=== PATIENT | female | born 1945 | race Caucasian/White ===

== ENCOUNTER 2018-02-21 10:53 | Emergency (ER) | payer MEDICARE ==
[2018-02-21] MEDS ORDERED: SODIUM CHLORIDE 0.9% 500 ML 500 ML IV STA (11:17)
--- NOTE | 2018-02-21 11:22 | ED ---
General Adult HPI <Niels Marcano - Last Filed: 02/21/18 14:01> - General Source: patient, RN notes reviewed, old records reviewed Mode of arrival: ambulatory Limitations: no limitations <Rhonda Sanchez - Last Filed: 02/21/18 14:18> - General Chief complaint: Arrhythmia/Palpitations Stated complaint: Shaky, not sleeping Time Seen by Provider: 02/21/18 11:08 - History of Present Illness Initial comments: Patient is a 73-year-old female presents emergency department today with her . Patient states she's been generally feeling unwell, shaky and feeling like she's having heart palpitations. Patient reports that she never goes to physicians. She states she has a severe fear for hospitals. Patient reports that she noticed approximately 11 years ago she had a small cyst within her left breast. Patient states it has increased in size over the past 11 years. Patient states that she has been doing her daily activities but seems to be more fatigued when doing them. She states that over the last few weeks she's noticed increasing skin changes over her left breast that the mass. Patient states that she has never had this biopsied or mentioned this to her family. She does relate that her daughter is a nurse who will be very upset when she finds out her symptoms. Patient states she has no significant pain at this time. (Rhonda Sanchez) - Related Data Home Medications Medication Instructions Recorded Confirmed Dm/Acetaminophen/Doxylamine [Vicks 1 dose PO DIRECTED PRN 02/21/18 02/21/18 Nyquil Cold-Flu Liquid] Rosalio's Wort 500 mg PO DAILY PRN 02/21/18 02/21/18 Previous Rx's Medication Instructions Recorded LORazepam [Ativan] 0.5 mg PO TID 3 Days #9 tab 02/21/18 Allergies Allergy/AdvReac Type Severity Reaction Status Date / Time No Known Allergies Allergy Verified 02/21/18 11:51 Review of Systems ROS Other: All systems not noted in ROS Statement are negative. <Niels Marcano - Last Filed: 02/21/18 14:01> ROS Other: All systems not noted in ROS Statement are negative. <Rhonda Sanchez - Last Filed: 02/21/18 14:18> ROS Statement: Those systems with pertinent positive or pertinent negative responses have been documented in the HPI. Past Medical History Past Medical History: No Reported History History of Any Multi-Drug Resistant Organisms: None Reported Past Surgical History: Section, Cholecystectomy Past Psychological History: No Psychological Hx Reported Smoking Status: Never smoker Past Alcohol Use History: None Reported Past Drug Use History: None Reported <Rhonda Sanchez - Last Filed: 02/21/18 14:18> General Exam <Niels Marcano - Last Filed: 02/21/18 14:01> Limitations: no limitations General appearance: alert, in no apparent distress Head exam: Present: atraumatic, normocephalic, normal inspection Eye exam: Present: normal appearance, PERRL, EOMI. Absent: scleral icterus, conjunctival injection, periorbital swelling ENT exam: Present: normal exam, mucous membranes moist Neck exam: Present: normal inspection. Absent: tenderness, meningismus, lymphadenopathy Respiratory exam: Present: normal lung sounds bilaterally, other (Patient has a 10 cm by 10cm firm mass over left breast, with crusting erythematous papular lesion in centre. ). Absent: respiratory distress, wheezes, rales, rhonchi, stridor Cardiovascular Exam: Present: regular rate, normal rhythm, normal heart sounds. Absent: systolic murmur, diastolic murmur, rubs, gallop, clicks GI/Abdominal exam: Present: soft, normal bowel sounds. Absent: distended, tenderness, guarding, rebound, rigid Extremities exam: Present: normal inspection, full ROM, normal capillary refill. Absent: tenderness, pedal edema, joint swelling, calf tenderness Back exam: Present: normal inspection Neurological exam: Present: alert, oriented X3, CN II-XII intact Psychiatric exam: Present: normal affect, normal mood Skin exam: Present: warm, dry, intact, normal color. Absent: rash <Rhonda Sanchez - Last Filed: 02/21/18 14:18> - General Exam Comments Initial Comments: 73-year-old female. Alert and oriented. Patient appears in no acute distress. (Rhonda Sanchez) Vital Signs 02/21/18 02/21/18 02/21/18 10:54 12:00 12:57 Temperature 97.9 F Pulse Rate 89 96 Respiratory 18 18 18 Rate Blood Pressure 198/114 194/89 189/87 O2 Sat by Pulse 96 97 Oximetry 02/21/18 02/21/18 13:00 14:00 Temperature 98.3 F Pulse Rate 90 89 Respiratory 16 16 Rate Blood Pressure 189/87 177/90 O2 Sat by Pulse 95 96 Oximetry - Reevaluation(s) Reevaluation #1: 02/21/18 14:02 DWIGHT supervision: I proceeded [id number] evaluation the patient did discuss Pfizer her and her . Patient does present with complaints of palpitations additionally she has a mass in her left breast she states started about 11 years ago she's never had it evaluated. I did examine it there is evidence of a fungating mass in the left upper outer quadrant of left breast. Nontender to palpation at this time no drainage seen at this time. The patient will be discharged to follow-up in the breast clinic this week. This will be for further evaluation and treatment. The patient and her are in agreement with this. (Niels Marcano) EKG Findings - EKG Comments: EKG Findings:: Patient EKG performed at 1134 shows sinus rhythm, anterior infarct age undetermined. ST-T wave normality considering lateral ischemia. Abnormal EKG. Ventricular rate of 94 bpm. 46 most seconds. Stressors and 70 formal seconds. QT QTc is 346/432 ms. <Rhonda Sanchez - Last Filed: 02/21/18 14:18> Medical Decision Making - Lab Data Result diagrams: 02/21/18 11:48 02/21/18 11:48 <Niels Marcano - Last Filed: 02/21/18 14:01> - Lab Data Result diagrams: 02/21/18 11:48 02/21/18 11:48 - Radiology Data Radiology results: report reviewed <Rhonda Sanchez - Last Filed: 02/21/18 14:18> - Medical Decision Making 73-year-old female. Anxious about coming to the emergency department today presents with complaints of palpitations been eating for the past few months, generally feeling unwell and more fatigued. She also complains of a large left breast masses been there for over 10 years. She has emergency department. She is somewhat hypertensive. She denies any specific chest pain or shortness of breath or abdominal pain. Patient has a large fungating breast mass. I discussed the case with Dr. Marcano. He discussed the case with on-call breast surgeon and Dr. Kian Marcano. Patient will have very close referral for them and they expect to have her call the office within the next 1-2 days. Her EKG, and troponin are negative. Chest x-ray was negative for any acute process. There is possibility of increased hilar density. At this time I'm very concerned the patient's breast mass is likely cancer. Patient was informed of this. Patient is quite anxious and given 1 dose of Ativan emergency department and we'll discharge the Patient a short course of Ativan to help her nerves and help her sleep. Discussed that she has to follow-up with her primary care provider in regards to episode of high blood pressure. She has no neurological deficits or any other complaints of chest pain or signs of end organ damage. Patient will be discharged at this time with close follow-up with breast surgeon and PCP. ( Rhonda Sanchez) - Lab Data Lab Results 02/21/18 02/21/18 02/21/18 Range/Units 11:48 11:48 11:48 WBC 8.4 (3.8-10.6) k/uL RBC 4.62 (3.80-5.40) m/uL Hgb 14.1 (11.4-16.0) gm/dL Hct 41.1 (34.0-46.0) % MCV 88.9 (80.0-100.0) fL MCH 30.5 (25.0-35.0) pg MCHC 34.3 (31.0-37.0) g/dL RDW 13.3 (11.5-15.5) % Plt Count 245 (150-450) k/uL Neutrophils % 68 % Lymphocytes % 25 % Monocytes % 5 % Eosinophils % 1 % Basophils % 0 % Neutrophils # 5.8 (1.3-7.7) k/uL Lymphocytes # 2.1 (1.0-4.8) k/uL Monocytes # 0.4 (0-1.0) k/uL Eosinophils # 0.1 (0-0.7) k/uL Basophils # 0.0 (0-0.2) k/uL PT (9.0-12.0) sec INR (<1.2) APTT (22.0-30.0) sec Sodium 142 (137-145) mmol/L Potassium 4.2 (3.5-5.1) mmol/L Chloride 106 (98-107) mmol/L Carbon Dioxide 24 (22-30) mmol/L Anion Gap 12 mmol/L BUN 14 (7-17) mg/dL Creatinine 0.64 (0.52-1.04) mg/dL Est GFR (CKD-EPI)AfAm >90 (>60 ml/min/1.73 sqM) Est GFR (CKD-EPI)NonAf >90 (>60 ml/min/1.73 sqM) Glucose 140 H (74-99) mg/dL Calcium 9.7 (8.4-10.2) mg/dL Magnesium 2.1 (1.6-2.3) mg/dL Total Bilirubin 0.8 (0.2-1.3) mg/dL AST 29 (14-36) U/L ALT 40 (9-52) U/L Alkaline Phosphatase 74 (38-126) U/L Total Creatine Kinase 58 (30-135) U/L CK-MB (CK-2) 0.6 (0.0-2.4) ng/mL CK-MB (CK-2) Rel Index 1.0 Troponin I <0.012 (0.000-0.034) ng/mL Total Protein 7.8 (6.3-8.2) g/dL Albumin 4.7 (3.5-5.0) g/dL TSH 2.010 (0.465-4.680) mIU/L 02/21/18 Range/Units 11:48 WBC (3.8-10.6) k/uL RBC (3.80-5.40) m/uL Hgb (11.4-16.0) gm/dL Hct (34.0-46.0) % MCV (80.0-100.0) fL MCH (25.0-35.0) pg MCHC (31.0-37.0) g/dL RDW (11.5-15.5) % Plt Count (150-450) k/uL Neutrophils % % Lymphocytes % % Monocytes % % Eosinophils % % Basophils % % Neutrophils # (1.3-7.7) k/uL Lymphocytes # (1.0-4.8) k/uL Monocytes # (0-1.0) k/uL Eosinophils # (0-0.7) k/uL Basophils # (0-0.2) k/uL PT 9.7 (9.0-12.0) sec INR 0.9 (<1.2) APTT 22.6 (22.0-30.0) sec Sodium (137-145) mmol/L Potassium (3.5-5.1) mmol/L Chloride (98-107) mmol/L Carbon Dioxide (22-30) mmol/L Anion Gap mmol/L BUN (7-17) mg/dL Creatinine (0.52-1.04) mg/dL Est GFR (CKD-EPI)AfAm (>60 ml/min/1.73 sqM) Est GFR (CKD-EPI)NonAf (>60 ml/min/1.73 sqM) Glucose (74-99) mg/dL Calcium (8.4-10.2) mg/dL Magnesium (1.6-2.3) mg/dL Total Bilirubin (0.2-1.3) mg/dL AST (14-36) U/L ALT (9-52) U/L Alkaline Phosphatase (38-126) U/L Total Creatine Kinase (30-135) U/L CK-MB (CK-2) (0.0-2.4) ng/mL CK-MB (CK-2) Rel Index Troponin I (0.000-0.034) ng/mL Total Protein (6.3-8.2) g/dL Albumin (3.5-5.0) g/dL TSH (0.465-4.680) mIU/L - Radiology Data No focal consolidations to suggest pneumonia. Hilar enlargement may represent underlying pulmonary to hypertension (Rhonda Sanchez) Disposition <Niels Marcano - Last Filed: 02/21/18 14:01> Is patient prescribed a controlled substance at d/c from ED?: Yes When asked, does pt state using other controlled substances?: No Time of Disposition: 14: <Rhonda Sanchez - Last Filed: 02/21/18 14:18> Clinical Impression: Breast mass, left, Episode of hypertension, Anxiety Disposition: HOME SELF-CARE Condition: Good Instructions: Breast Mass (ED) Additional Instructions: Patient is to have very close follow-up with primary care physician. Return to the emergency department if any alarming signs or symptoms occur. Patient should follow-up with Dr. Kina Marcano on . Prescriptions: LORazepam [Ativan] 0.5 mg PO TID 3 Days #9 tab Referrals: Ronnie Caballero MD [Primary Care Provider] - 1-2 days Mami Cha MD [STAFF PHYSICIAN] - 1-2 days
--- NOTE | 2018-02-21 12:04 | XR ---
EXAMINATION TYPE: XR chest 2V DATE OF EXAM: 02/21/2018 COMPARISON: NONE HISTORY: Dysrhythmia, hypertension, and weakness TECHNIQUE: Frontal and lateral views of the chest are obtained. FINDINGS: There is no focal air space opacity, pleural effusion, or pneumothorax seen. The cardiac silhouette size is within normal limits. There is hilar enlargement, right greater than left with asy mmetry secondary to accentuation by to patient rotation. The osseous structures are intact. IMPRESSION: 1. No focal consolidation to suggest pneumonia. 2. Hilar enlargement may represent underlying pulmonary arterial hypertension.
[2018-02-21 12:10] LABS: Basophils % (A) 0 %; Eosinophils # (A) 0.1 k/uL (0-0.7); Eosinophils % (A) 1 %; HCT 41.1 % (34.0-46.0); HGB 14.1 gm/dL (11.4-16.0); Lymphocytes # (A) 2.1 k/uL (1.0-4.8); Lymphocytes % (A) 25 %; MCH 30.5 pg (25.0-35.0); MCHC 34.3 g/dL (31.0-37.0); MCV 88.9 fL (80.0-100.0); Mean Platelet Volume 6.9; Monocytes # (A) 0.4 k/uL (0-1.0); Monocytes % (A) 5 %; Neutrophils # (A) 5.8 k/uL (1.3-7.7); Neutrophils % (A) 68 %; Platelet Count 245 k/uL (150-450); RBC 4.62 m/uL (3.80-5.40); RDW 13.3 % (11.5-15.5); WBC 8.4 k/uL (3.8-10.6)
[2018-02-21 12:18] LABS: ALT 40 U/L (9-52); AST 29 U/L (14-36); Albumin 4.7 g/dL (3.5-5.0); Alkaline Phosphatase 74 U/L (38-126); Anion Gap 12 mmol/L; Blood Urea Nitrogen 14 mg/dL (7-17); Calcium 9.7 mg/dL (8.4-10.2); Carbon Dioxide 24 mmol/L (22-30); Chloride 106 mmol/L (98-107); Glucose 140 mg/dL (74-99); Magnesium 2.1 mg/dL (1.6-2.3); Potassium 4.2 mmol/L (3.5-5.1); Sodium 142 mmol/L (137-145); Total Bilirubin 0.8 mg/dL (0.2-1.3); Total Protein 7.8 g/dL (6.3-8.2)
[2018-02-21 12:29] LABS: INR 0.9 (<1.2); Partial Thromboplastin Time 22.6 sec (22.0-30.0); Prothrombin Time 9.7 sec (9.0-12.0)
[2018-02-21 12:43] LABS: Creatine Kinase 58 U/L (30-135)
[2018-02-21 12:56] LABS: Creatine Kinase MB 0.6 ng/mL (0.0-2.4); Troponin I <0.012 ng/mL (0.000-0.034)
[2018-02-21] MEDS ORDERED: LORazepam 2 MG/ML INJ IV STA (13:58)
[2018-02-21 14:05] VITALS: BP 177/90; PULSE 89; RESP 16; TEMP 98.3
[2018-02-21] MEDS ORDERED: LORazepam 1 MG TAB PO STA (14:12)
== END 2018-02-21 14:20 | disposition home or self-care (01) ==
LOC: EC 10:53
DX: N63.20 Unspecified lump in the left breast, unspecified quadrant (principal); I10 Essential (primary) hypertension; F41.9 Anxiety disorder, unspecified; R00.2 Palpitations; R53.83 Other fatigue; Z53.8 Procedure and treatment not carried out for other reasons
CPT/HCPCS: 36415; 71046; 80053; 82550; 82553; 83735; 84443; 84484; 85025; 85610; 85730; 96360; 96361; 99285

== ENCOUNTER → 2018-02-24 | Outpatient (CLI) | payer MEDICARE ==
[2018-02-24 12:38] VITALS: BP 163/81; PULSE 78; RESP 18; TEMP 98; BMI 26.9
--- NOTE | 2018-02-24 13:49 | P.GSHP ---
History of Present Illness H&P Date: 02/24/18 Chief Complaint: Mass left breast Eulalia is a 73-year-old white female who approximately 11 years ago noted a mass starting in her left breast. She states until last summer it was smooth. She says she got hit in the area after a suite case fell and hit the area. She has a phobia to go to doctors and did not seek medical attention. The area has been oozing for about a month.She began having anxiety and palpatations and decided to go to the hospital. She was discharged and sent here. Family History: mother: lymphoma father: prostate Hormonal History: menarche: 12 : 8, 4 children, nursed 2 children, first born at 23 BPC: none hormones: none menopause: 49 Surgical history: 1. Cholecystectomy 2. Medical History: none Social History: smoke: none alcohol: occasional drugs: none - Constitutional Constitutional: Denies chills, Denies fever - EENT Comment: wear glasses Eyes: denies blurred vision, denies pain Ears: left: tinnitus, deny: decreased hearing Ears, nose, mouth and throat: Denies headache, Denies sore throat - Breasts Breasts: bilateral: as per HPI - Cardiovascular Cardiovascular: Denies chest pain, Denies shortness of breath - Respiratory Respiratory: Reports cough - Gastrointestinal Gastrointestinal: Denies abdominal pain, Denies diarrhea, Denies nausea, Denies vomiting - Genitourinary (Female) Genitourinary: Denies dysuria, Denies hematuria - Musculoskeletal Musculoskeletal: Denies myalgias - Integumentary Comment: left breast lesions Integumentary: Denies pruritus, Denies rash - Neurological Comment: shaky feeling at times Neurological: Denies numbness, Denies weakness - Psychiatric Psychiatric: Reports anxiety, Denies depression - Endocrine Comment: lost 10 pounds Endocrine: Reports weight change, Denies fatigue - Hematologic/Lymphatic Comment: none - Allergic/Immunologic Comment: none, questionable cat Past Medical History Past Medical History: No Reported History History of Any Multi-Drug Resistant Organisms: None Reported Past Surgical History: Section, Cholecystectomy Past Psychological History: Anxiety Smoking Status: Never smoker Past Alcohol Use History: None Reported Past Drug Use History: None Reported - Past Family History Father Family Medical History: Dementia, Hypertension Additional Family Medical History / Comment(s): pacemaker Mother Family Medical History: Cancer Additional Family Medical History / Comment(s): non hodkins lymphoma, bowel resection Medications and Allergies Home Medications Medication Instructions Recorded Confirmed Type Dm/Acetaminophen/Doxylamine [Vicks 1 dose PO DIRECTED PRN 02/21/18 02/24/18 History Nyquil Cold-Flu Liquid] LORazepam [Ativan] 0.5 mg PO TID 3 Days #9 tab 02/21/18 02/24/18 Rx Rosalio's Wort 500 mg PO DAILY PRN 02/21/18 02/24/18 History Allergies Allergy/AdvReac Type Severity Reaction Status Date / Time No Known Allergies Allergy Verified 02/24/18 12:38 Surgical - Exam Vital Signs Temp Pulse Resp BP Pulse Ox 98 F 78 18 163/81 99 02/24/18 12:26 02/24/18 12:26 02/24/18 12:26 02/24/18 12:26 02/24/18 12:26 BMI 26.9 - General well developed, moderate distress - Eyes normal ocular movement - ENT normal pinna, no hearing loss - Neck trachea midline - Respiratory normal expansion, normal respiratory effort, clear to auscultation - Cardiovascular Rhythm: regular Heart Sounds: normal: S1, S2 - Abdomen No guarding or rebound Abdomen: soft, non tender - Neurologic no disoriented, no combative - Musculoskeletal normal gait, normal posture - Psychiatric oriented to time, oriented to person, oriented to place, speech is normal, memory intact Breast examination: Right breast: Multi-positional exam no dominant masses or nodules of concern Right axilla: No adenopathy of concern Left breast: Large mass upper outer quadrant area approximately 7 cm x 7 cm, this areas fungating through the skin, this is not fixed to the chest wall Left axilla: Enlarged lymph node which is not fixed Results Mammogram report reviewed and ultrasound report reviewed highly suspicious lesion left breast upper outer quadrant area as well as suspicious lesion in the left axilla lesion of the left breast is approximately 5 cm on radiographic evaluation Assessment and Plan Assessment: Impression: 1. Highly suspicious lesion left breast and left axilla for cancer 2. Patient has not seen a physician until recently for many years 3. Possible history of myocardial infarction the remote past 4. Anxiety Plan: 1. Biopsy of breast and axillary lesion left side 2. Medical oncology consultation 3. We'll discuss the options with the patient including possible mastectomy versus chemo/hormonal therapy to attempt to shrink the tumor Cc: Dr. Caballero
== END ==
LOC: WWCWWP 09:50
PROVIDERS: ATTEND Surgery
DX: Z53.9 Procedure and treatment not carried out, unspecified reason (principal)

== ENCOUNTER → 2018-02-24 | Outpatient (CLI) | payer MEDICARE ==
--- NOTE | 2018-02-24 13:45 | MM ---
Reason for exam: clinical finding. History: Patient is postmenopausal. Indicated problem(s): lump or thickening in the left breast. Physical Findings: Nurse Summary: 8 x 9 cm fixed dominant mass left upper breast. The palpable has notable open areas of redness and scabbing. Pt has felt this for 11 years. There is skin dimpling on left breast at 9 o'clock, patient unsure of duration. MG 3D Diag Mammo W/Cad PRASANTH Bilateral CC and MLO view(s) were taken. The breast tissue is heterogeneously dense. This may lower the sensitivity of mammography. There is a 45 mm lobulated density in the left breast. There are benign-appearing vascular calcifications in the right upper posterior middle breast. ASSESSMENT: Highly suggestive of malignancy, BI-RAD 5 RECOMMENDATION: Ultrasound core biopsy of the left breast.
--- NOTE | 2018-02-24 14:05 | USB ---
Reason for exam: additional evaluation requested from prior study. History: Patient is postmenopausal. Indicated problem(s): palpable abnormality in the left breast. Physical Findings: Nurse Summary: palpable mass left breast. US Breast LT Left complete breast ultrasound includes all four quadrants, the retroareolar region and axilla. Finding demonstrates a 7.3 x 4.5 x 706 cm lobulated, irregular, hypoechoic, vascular, lesion at 11-2 o'clock, a 0.7 x 0.8 x 0.7 cm lobulated, hypoechoic, vascular, lesion at 3 o'clock, and a 2.5 x 2.3 x 3.4 cm oval well circumscribed node with loss of fatty hillum. Highly suggestive of malignancy with axillary involvement. ASSESSMENT: Highly suggestive of malignancy, BI-RAD 5 RECOMMENDATION: Ultrasound core biopsy of the left breast. Called Dr. Caballero with mammographic findings and has scheduled an appointment for the patient for 02/24/18 at 12:[address] Cha for consultation only. The left breast ultrasound core biopsy is scheduled for 02/25/18 at 11:30. PRELIMINARY REPORT CALLED AND FAXED TO DR. CHA ON 02/24/18
== END | disposition home or self-care (01) ==
LOC: RADMAMWWP 09:43
PROVIDERS: ATTEND Family Medicine
DX: N63.20 Unspecified lump in the left breast, unspecified quadrant (principal)
CPT/HCPCS: 77066; 76641; G0279; 77062

== ENCOUNTER → 2018-02-25 | Day surgery (SDC) | payer MEDICARE ==
[2018-02-25 10:59] VITALS: RESP 16; BMI 26.9
--- NOTE | 2018-02-25 13:48 | USB ---
EXAMINATION TYPE: US biopsy breast VAD LT, US breast needle core LT DATE OF EXAM: 02/25/2018 CLINICAL HISTORY: R92.8 ABN MAMMO,N63 BREAST LUMP. TECHNIQUE: Ultrasound guided core biopsy of left breast. COMPARISON: 02/24/2018 FINDINGS: The procedure of ultrasound guided core biopsy was explained to the patient. Benefits, alt ernatives, and risks were discussed. An informed consent was then obtained. Preprocedural timeout w as performed Site A: Left breast mass- The patient was placed in supine positioning for imaging and for the proce dure. The overlying skin was prepped and draped in usual sterile fashion. 10 cc of lidocaine buffered with bicarbonate was used as anesthetic into the skin and 7 cc of lidocaine with epinephrine subcuta neous tissue up to the 7.3 cm left breast mass, documented retroareolar with extent in the upper oute r quadrant. Under ultrasound guidance, a 12-gauge vacuum assisted biopsy gun device was used to obtain 5 core gayatri ples. No biopsy marker was left in a mass as the mass was clearly evident both sonographically and ma mmographically, and clinically. Site B: Suspicious left axillary lymph node- The patient was placed in supine positioning for imagin g and for the procedure. The overlying skin was prepped and draped in usual sterile fashion. 8 cc of lidocaine buffered with bicarbonate was used as anesthetic into the skin and 5 cc of lidocaine with e pinephrine subcutaneous tissue up to the suspicious left axillary lymph node. Under ultrasound guidance, a 18-gauge biopsy gun device was used to obtain 3 core samples. A Hydromar k biopsy marker was left within the lymph node documented sonographically. The patient tolerated the procedure well without any immediate complication. The patient was kept in the radiology department for short stay after the procedure and then discharged home in stable condi tion. IMPRESSION: Successful, uncomplicated ultrasound guided core biopsy of the 7.3 cm BI-RADS [address] mass and highly suspicious left axillary lymph node, full pathology results to follow.
[2018-02-25 14:38] VITALS: BP 168/83; PULSE 85; TEMP 97.8
== END ==
LOC: RADUSWWP 10:28
PROVIDERS: ATTEND Surgery
DX: C50.912 Malignant neoplasm of unspecified site of left female breast (principal); C96.9 Malignant neoplasm of lymphoid, hematopoietic and related tissue, unspecified
CPT/HCPCS: 38505; 10035; 88305; 88342; 19083; A4648; J2001

== ENCOUNTER → 2018-03-03 | Outpatient (CLI) | payer MEDICARE ==
[2018-03-03 09:49] VITALS: BP 173/79; PULSE 90; RESP 18; TEMP 96.7; BMI 26.6
--- NOTE | 2018-03-03 11:40 | P.PN ---
Subjective Progress Note Date: 03/03/18 Principal diagnosis: Left breast cancer Eulalia is a 73-year-old white female status post left breast ultrasound core biopsy and left axilla ultrasound core biopsy. Both biopsies were consistent with invasive ductal carcinoma. The patient has no complaints related to the biopsies. Objective - Vital Signs Vital signs: Vital Signs Temp 96.7 F L 03/03/18 09:41 Pulse 90 03/03/18 09:41 Resp 18 03/03/18 09:41 BP 173/79 03/03/18 09:41 Pulse Ox 98 03/03/18 09:41 Intake & Output 03/02/18 03/03/18 03/03/18 18:59 06:59 18:59 Weight 66.224 kg - Constitutional General appearance: Present: average body habitus - EENT Eyes: Present: EOMI ENT: Present: hearing grossly normal - Neck Neck: Present: normal ROM - Respiratory Respiratory: bilateral: CTA - Cardiovascular Rhythm: regular Heart sounds: normal: S1, S2 - Integumentary Integumentary Comment(s): Left breast: Large mass upper outer quadrant area with some skin involvement Core biopsy sites clean and dry no evidence of ecchymosis, hematoma, or infection - Psychiatric Psychiatric Comment(s): anxious Psychiatric: Present: A&O x's 3, appropriate affect, intact judgment & insight Assessment and Plan Assessment: Impression: 1. 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 PET scan 2. Point with medical oncology most likely neoadjuvant chemotherapy 3. Follow-up in 6 weeks' time Cc:
== END ==
LOC: WWCWWP 09:33
PROVIDERS: ATTEND Surgery
DX: Z53.9 Procedure and treatment not carried out, unspecified reason (principal)

== ENCOUNTER → 2018-03-05 | Outpatient (CLI) | payer MEDICARE ==
--- NOTE | 2018-03-07 06:26 | PE ---
EXAMINATION TYPE: PET CT fusion skull to thigh DATE OF EXAM: 03/05/2018 COMPARISON: Diagnostic Three-D mammogram February 24, 2018. HISTORY: Newly diagnosed left-sided breast cancer including axillary involvement February 25, 2018 TECHNIQUE: Following the intravenous administration of 12.29 mCi of F-18 FDG, whole body images are performed from the skull base to the midthigh. Images are reviewed on the computer in the coronal, a xial, and sagittal planes. Reconstructed rotating images are created on independent workstation and reviewed on the computer. A noncontrast CT is performed in conjunction with the PET scan. SCAN: Initial Scan FINDINGS: SKULL BASE AND NECK: Mild Symmetric uptake at level of vocal cords. There is suspicious slightly hypermetabolic enlarged left supraclavicular lymph node measuring 1.6 x 1.4 cm axial image 69, max SUV is 2.89. CHEST, MEDIASTINUM, AND HILAR REGION: Corresponding to mammogram there is large hypermetabolic left b reast mass measuring roughly 7.0 cm in length axial image 106 by roughly 7.0 cm craniocaudal dimensio n with max SUV of 8.91. There are some adjacent satellite hypermetabolic masses, for reference a late ral 1.5 cm mass axial image 98 has max SUV of 7.29. There is asymmetric mild to moderate left-sided s kin thickening. There is 2.4 x 2.3 cm hypermetabolic biopsy-proven left axillary metastatic adenopath y axial image 94, max SUV is 7.9. No suspicious right breast or axillary hypermetabolic masses or adenopathy are noted. There is however right midlung azygoesophageal hypermetabolic mass measuring 4.8 x 3.3 cm axial image 97, max SUV is 12.55. Superior and anterior to this there is right suprahilar hypermetabolic mass me asuring 2.8 x 2.3 cm on axial image 85, max SUV is 10.14. There are additional suspicious but scatter ed subcentimeter and 1 cm ametabolic nodules throughout the lower lungs best seen near diaphragm. There are calcified right hilar lymph nodes incidentally seen. There is calcified 8 mm right upper lo be nodule axial image 83. Few calcifications throughout the spleen are also seen. Findings consistent with product of old granulomatous disease. ABDOMEN AND PELVIS: No suspicious hypermetabolic uptake is present OSSEOUS STRUCTURES: No suspicious hypermetabolic uptake is seen. OTHER CT: Incidental 1.7 cm mucous retention cyst or polyp anterior-inferior left maxillary sinus. There is coronary artery calcification present which is noted marker for coronary artery disease. Cholecystectomy clips are present. Diverticula are identified most prominent in the sigmoid colon. Fe w scattered pelvic phleboliths are seen. Exaggerated thoracic kyphosis. There is facet arthropathy lower lumbar spine. IMPRESSION: Uptake in large left breast mass and known left axillary adenopathy. Satellite nodules le ft breast are noted. There is suspected hematogenous metastatic disease to the lower lungs with large st hypermetabolic masses or neoplasm centrally in the right mid lung. There is left-sided supraclavic ular metastatic adenopathy. No osseous or abdominal involvement.
== END | disposition home or self-care (01) ==
LOC: RADPETMAIN 13:21
PROVIDERS: ATTEND Surgery
DX: C77.0 Secondary and unspecified malignant neoplasm of lymph nodes of head, face and neck (principal); C50.912 Malignant neoplasm of unspecified site of left female breast; R59.0 Localized enlarged lymph nodes; N63.20 Unspecified lump in the left breast, unspecified quadrant
CPT/HCPCS: 78815; A9552

== ENCOUNTER → 2018-09-12 | Outpatient (CLI) | payer MEDICARE ==
--- NOTE | 2018-09-12 16:16 | CT ---
EXAMINATION TYPE: CT ChestAbdPelvis w con DATE OF EXAM: 09/12/2018 COMPARISON: 03/05/2018 HISTORY: 73-year-old female follow-up Breast cancer. TECHNIQUE: Contiguous axial scanning of the chest, abdomen, and pelvis performed with IV Contrast, pa tient injected with 100 mL of Isovue M300. Delayed images through the kidneys were obtained. Coronal/ sagittal reconstructions performed. CT DLP: 882.6 mGycm Automated exposure control for dose reduction was used. FINDINGS: Chest: Heart upper limits of normal in size without pericardial effusion. Aorta normal caliber with conventional branching anatomy. Minimal residual right suprahilar soft tissue density, axial image 24. Right-sided subcarinal lymphad enopathy decreased now measuring 2.8 x 2.0 cm versus 4.8 x 3.3 cm, previously. Left supraclavicular lymph node decreased in size at 9 mm versus 1.4 cm, previously. Large left breast mass decreased in size estimated at 4.4 cm versus 7.9 cm, previously. A lateral sat ellite nodule measures 9 mm versus 1.5 cm, previously. Left axillary lymph node measures 2.0 cm versus 3.0 cm, previously. Mild centrilobular emphysema. Calcified granuloma right upper lobe. Large calcified right hilar lymph nodes. A few bibasilar pulmonary nodules are redemonstrated but have decreased in size now measuring up to 6 mm versus 1.1 cm, previously. ABDOMEN: Small hiatal hernia. Stable cyst measuring 1.5 cm in segment 4 left liver lobe. Cholecystectomy clips. Portal venous syste m is patent. No biliary ductal dilatation. Adrenal glands, kidneys, and pancreas appear within normal limits. A few calcified granulomas in the spleen. No dilated small bowel, free fluid, or free air. A few scattered prominent but nonenlarged mesenteric lymph nodes measure up to 6 mm. Probably reactiv e/post inflammatory. Oral contrast progressed to the proximal sigmoid. Left-sided colonic diverticulosis, greatest in the sigmoid colon. No pericolonic inflammatory change. Pelvis: Bladder is urine distended. Uterus anteverted. Both ovaries are visualized. Pelvic phlebolith. No abn ormal fluid collection in the pelvis or pelvic lymphadenopathy. Bones: Facet arthropathy lower lumbar spine. Sclerotic focus anterior T3 vertebral body appears new/larger. Some bridging changes of dish in the mid thoracic spine with accentuated thoracic kyphosis. IMPRESSION: 1. LARGE LEFT BREAST MASS SHOWS DECREASE IN SIZE (4.4 CM VERSUS 7.9 CM, PREVIOUSLY). LATERAL SATELLIT E NODULE ALSO DECREASED MEASURING 9 MM VERSUS 1.4 CM, PREVIOUSLY. 2. LEFT AXILLARY LYMPH NODE, LEFT SUPRACLAVICULAR LYMPH NODE, BIBASILAR PULMONARY NODULES, RIGHT SUPR AHILAR SOFT TISSUE, AND SUBCARINAL SOFT TISSUE ALL SHOW INTERVAL DECREASE IN SIZE. FINDINGS COMPATIBL E WITH PARTIAL TREATMENT RESPONSE. 3. SCLEROTIC FOCUS ANTERIOR T3 VERTEBRAL BODY IS LARGER/NEW. GIVEN OVERALL POSITIVE TREATMENT RESPONS E, THIS COULD REPRESENT HEALING SCLEROSIS OF PREVIOUSLY OCCULT OSSEOUS METASTATIC LESION. 4. LEFT-SIDED COLONIC DIVERTICULOSIS, GREATEST IN THE SIGMOID COLON.
== END | disposition home or self-care (01) ==
LOC: RADCTMAIN 12:50
PROVIDERS: ATTEND Internal Medicine Hematology & Oncology
DX: K57.30 Diverticulosis of large intestine without perforation or abscess without bleeding (principal); R91.8 Other nonspecific abnormal finding of lung field; C50.812 Malignant neoplasm of overlapping sites of left female breast
CPT/HCPCS: 82565; 84520; 71260; 74177; 36415; Q9967

== ENCOUNTER → 2019-01-24 | Outpatient (CLI) | payer MEDICARE ==
--- NOTE | 2019-01-24 13:34 | BD ---
EXAMINATION TYPE: Axial Bone Density DATE OF EXAM: 01/24/2019 COMPARISON: none CLINICAL HISTORY: Postmenopausal female Height: 62 inches Weight: 164 FRAX RISK QUESTIONS: Alcohol (3 or more units per day): no Family History (Parent hip fracture): no Glucocorticoids (More than 3mos): no (Ex: prednisone, prednisolone, methylprednisolone, dexamethasone, and hydrocortisone). History of Fracture in Adulthood: yes Secondary Osteoporosis: 1. Type 1 Diabetes: no 2. Hyperthyroidism: no 3. Menopause before 45: no 4. Malnutrition: no 5. Chronic liver disease: no Rheumatoid Arthritis: no Current Tobacco Use: no RISK FACTORS HISTORY OF: Family History of Osteoporosis: not to knowledge of patient Active: yes Diet low in dairy products/other sources of calcium: no Postmenopausal woman: yes Take estrogen and/or progesterone medications: no Lost more than 2 inches in height since high school: no Frequent falls: no Poor Health: breast ca, otherwise not in poor health Hyperparathyroidism: no Adrenal Insufficiency: no MEDICATIONS: Prednisone or other steroids: no Thyroid Medications: no Osteoporosis Medications: no Additional Medications: Letrozole, ibrance, Vitamin D & Calcium Additional History: Breast CA, hx fx elbow EXAM MEASUREMENTS: Bone mineral densitometry was performed using the [employer] [facility]. Bone mineral density as measured about the Lumbar spine is: ----- L1-L4(G/cm2): 0.969 T Score Values are as follows: ----- L2: -2.3 ----- L3: -1.8 ----- L4: -1.3 ----- L1-L4: -1.8 Bone mineral density BASELINE Bone mineral density about the R hip (g/cm2): 0.723 Bone mineral density about the L hip (g/cm2): 0.712 T Score values are as follows: -----R Neck: -2.3 -----L Neck: -2.3 -----R Total: -2.3 -----L Total: -1.9 Bone mineral density BASELINE IMPRESSION: Osteopenia (T Score between -2.5 and -1). There is slightly increased risk of fracture and the patient may be considered for treatment. Re-Screen 2-5 years. NOTE: T-SCORE=SD OF THE YOUNG ADULT MEAN.
== END ==
LOC: RADBDWWP 09:36
PROVIDERS: ATTEND Internal Medicine Hematology & Oncology
DX: M85.80 Other specified disorders of bone density and structure, unspecified site (principal); N95.1 Menopausal and female climacteric states; C50.812 Malignant neoplasm of overlapping sites of left female breast; Z79.890 Hormone replacement therapy
CPT/HCPCS: 77080

== ENCOUNTER → 2019-05-03 | Outpatient (CLI) | payer MEDICARE ==
--- NOTE | 2019-05-03 11:46 | CT ---
EXAMINATION TYPE: CT ChestAbdPelvis w con DATE OF EXAM: 05/03/2019 COMPARISON: Prior CT September 12, 2018 and PET/CT March 05, 2018 HISTORY: Malignant neoplasm of overlapping sites. Breast and lung involvement. CT DLP: 931.6 mGycm. Automated Exposure Control for Dose Reduction was Utilized. CONTRAST: CT scan of the thorax, abdomen and pelvis is performed with IV Contrast, patient injected with 100 mL of Isovue 300. FINDINGS: LUNGS: There is redemonstration of scattered smaller nodules in the lower lungs improved from PET/CT. Visualized nodules are stable or smaller in size from most recent CT. All are currently subcentimete r. For reference two nodules right lung base anteriorly axial image 41 are less prominent versus prio r CT axial image 45. For reference lingular nodule axial image 40 measures 5 x 4 mm current study paul jose 9 x 4 mm prior study image 40. Persistent mild bibasilar linear scarring and/or atelectasis along with mild biapical linear scarring. Persistent calcified 1 cm nodule or granuloma anterior right upp er lung and more prominent adjacent interstitial edema or fibrosis. MEDIASTINUM: There are no new greater than 1 cm noncalcified hilar or mediastinal lymph nodes. Contin ued improving right hilar/infrahilar adenopathy measuring 2.0 x 1.3 cm axial image 30 versus 3.0 x 1. 9 cm axial image 32. Stable prominent calcified right hilar lymph node axial image 26. No cardiomega ly or pericardial effusion is seen. OTHER: Continued improving left breast mass or neoplasm now measuring 2.8 x 2.7 x 3.1 cm axial image 16 and coronal image 22 versus 4.3 x 3.5 x 4.8 cm prior study axial image 21 and coronal image 13. Th e adjacent left subcentimeter satellite nodule image 14 diminished in size to roughly 4 mm versus 9 m m on prior. Left axillary lymph node measures 1.5 x 1.2 cm current study axial image 13 versus 2.0 x 1.5 cm on prior, central clip remains present. Persistent slight asymmetric left-sided breast skin th ickening shows improvement. The left supraclavicular lymph node axial image 7 measures 1.2 x 1.0 cm not significantly changed fro m most recent CT. Improved from PET/CT. LIVER/GB: Hypodense liver consistent with diffuse fatty infiltration. Stable nonspecific 1.7 cm hypod ense lesion image 55 favoring simple thin-walled cyst.. PANCREAS: No significant abnormality is seen. SPLEEN: No significant abnormality is seen. ADRENALS: No significant abnormality is seen. KIDNEYS: No significant abnormality is seen. BOWEL: Oral contrast reaches rectum. No suspicious small or large bowel dilatation. Some diverticula scattered throughout the colon. GENITAL ORGANS: Anteverted uterus. Scattered pelvic phleboliths. LYMPH NODES: No greater than 1cm abdominal or pelvic lymph nodes are appreciated. OSSEOUS STRUCTURES: Moderate disc space narrowing with vacuum disc phenomenon L4-L5 level.. OTHER: No significant additional abnormality is seen. IMPRESSION: Continued partial positive treatment response with improving left breast mass and adjacen t satellite nodule along with axillary adenopathy along with pulmonary basilar nodules suspected zak togenous metastatic disease. Improving thoracic adenopathy. Stable left supraclavicular adenopathy. No new suspicious masses.
== END | disposition home or self-care (01) ==
LOC: RADCTMAIN 08:53
PROVIDERS: ATTEND Internal Medicine Hematology & Oncology
DX: Z03.89 Encounter for observation for other suspected diseases and conditions ruled out (principal); C50.812 Malignant neoplasm of overlapping sites of left female breast
CPT/HCPCS: 82565; 84520; 71260; 74177; 36415; Q9967 ×2

== ENCOUNTER → 2019-10-30 | Outpatient (CLI) | payer MEDICARE ==
--- NOTE | 2019-10-30 14:18 | CT ---
EXAMINATION TYPE: CT ChestAbdPelvis w con DATE OF EXAM: 10/30/2019 COMPARISON: 05/03/2019 HISTORY: Follow up breast cancer CT DLP: 944.6 mGycm CONTRAST: CT scan of the chest, abdomen and pelvis is performed with Oral Contrast and with IV Contrast, patien t injected with 100 mL of Isovue 300. CT Chest: LUNGS: The lungs are hyperinflated compatible with COPD. Scattered subpleural fibrosis redemonstrated . Right upper lobe pulmonary nodule measures 6 mm versus 6 mm previously. Right middle lobe pulmonary nodules are redemonstrated all smaller in size and currently measure up to 5.3 mm versus 6 mm previo usly. Nodularity persists in the region of the lingula measuring 5 mm versus 5 mm. Pleural-based nodu le right lower lobe posterior sulcus measures 6.3 mm and is also unchanged. Parenchymal scarring left lower lobe. MEDIASTINUM: Thoracic aorta is of normal caliber. The heart is not enlarged. No evidence for media stinal mass or adenopathy. HILAR STRUCTURES: No evidence for mass. No hilar adenopathy is appreciated. OTHER: Left breast mass is redemonstrated and currently measures 2.1 x 2.1 cm versus 2.8 x 2.7 cm. Ad ditional satellite nodularity also diminished in size. Left axillary lymph node persists although is smaller in size and measures 8.3 mm versus 1.2 cm in axis. CONTRAST CT ABDOMEN AND PELVIS FINDINGS: LIVER/GB: There is hepatic steatosis noted. Lesion adjacent to the falciform ligament is unchanged and measures 1.6 cm versus 1.7 cm previously. The gallbladder is surgically absent. No space occupyi ng hepatic lesion. Biliary tree is of normal caliber. PANCREAS: No inflammation. No distinct mass. SPLEEN: No splenic enlargement. No lesion seen. ADRENALS: No nodule. No thickening. KIDNEYS/BLADDER: No hydronephrosis. No nephrolithiasis. No disctinct renal mass. BOWEL: Normal appendix. Normal bowel caliber. No inflammation. GENITAL ORGANS: No gross abnormality. LYMPH NODES: No greater than 1cm abdominal or pelvic lymph nodes are appreciated. AORTA: No significant abnormality. OSSEOUS STRUCTURES: No significant abnormality is seen. OTHER: No significant additional abnormality is seen. IMPRESSION: 1. Persistent but diminishing size left breast mass and left axillary adenopathy. 2. Stable hepatic lesion noted. 3. Pulmonary nodules as discussed above.
== END | disposition home or self-care (01) ==
LOC: RADCTMAIN 11:41
PROVIDERS: ATTEND Internal Medicine Hematology & Oncology
DX: N63.20 Unspecified lump in the left breast, unspecified quadrant (principal); R91.8 Other nonspecific abnormal finding of lung field; K76.89 Other specified diseases of liver; R59.9 Enlarged lymph nodes, unspecified; C50.812 Malignant neoplasm of overlapping sites of left female breast
CPT/HCPCS: 82565; 84520; 71260; 74177; 36415; Q9967

== ENCOUNTER → 2020-08-20 | Outpatient (CLI) | payer MEDICARE ==
--- NOTE | 2020-08-21 07:41 | CT ---
EXAMINATION TYPE: CT ChestAbdPelvis w con DATE OF EXAM: 08/20/2020 COMPARISON: Most recent CT October 30, 2019 and older CTs HISTORY: Follow up for breast cancer, observe for mets. CT DLP: 964.2 mGycm. Automated Exposure Control for Dose Reduction was Utilized. CONTRAST: CT scan of the thorax, abdomen and pelvis is performed with oral and with IV Contrast, patient inject ed with 80ml mL of Isovue 300. FINDINGS: LUNGS: There is continued improvement of scattered smaller nodules in the lower lungs improved from o lder study. No measurable nodules on current CT over 4 mm. [id number] basilar reticulation and linear atelectatic and/or fibrotic change shows slight interval progression from older studies. Persi stent calcified 1 cm nodule or granuloma anterior right upper lung and stable adjacent interstitial f ibrosis. MEDIASTINUM: There are no new greater than 1 cm noncalcified hilar or mediastinal lymph nodes. Fairly stable right hilar/infrahilar prominent lymph node measuring 1.7 x 1.0 cm axial image 26 versus mos t recent prior study axial image 26. Stable enlarged calcified right hilar lymph node axial image 26. No enlarging greater than 1 cm lymph nodes. No cardiomegaly or pericardial effusion is seen. OTHER: Continued improving left breast mass or neoplasm now measuring 1.9 x 1.8 x 2.5 cm axial image 20 and coronal image 13 versus 2.2 x 2.1 x 2.7 cm prior study axial image 18 and coronal image 14. Th e adjacent left subcentimeter satellite nodule image 14 diminished in size to roughly 2-3 mm axial im age 21 from older studies. Left axillary lymph node measures 1.0 x 0.9 cm current study axial image 16 decreased in size from prior studies, central clip remains present. Persistent slight asymmetric l eft-sided breast skin thickening remains present. Nipple retraction again seen. The prior hypermetabolic left supraclavicular lymph node is not identified on current study. LIVER/GB: Hypodense liver consistent with diffuse fatty infiltration. Stable nonspecific 1.6 cm hypod ense lesion image 56 favoring simple thin-walled cyst is redemonstrated. Gallbladder surgically absen t. PANCREAS: No significant abnormality is seen. SPLEEN: No significant abnormality is seen. ADRENALS: Stable slight thickening to left adrenal gland. KIDNEYS: No significant abnormality is seen. BOWEL: Oral contrast reaches level of distal transverse colon. No suspicious small or large bowel dil atation. Some diverticula scattered throughout the colon. GENITAL ORGANS: Anteverted uterus. Scattered pelvic phleboliths. LYMPH NODES: No new greater than 1cm abdominal or pelvic lymph nodes are appreciated. OSSEOUS STRUCTURES: Mild to moderate disc space narrowing with vacuum disc phenomenon L4-L5 level. OTHER: No significant additional abnormality is seen. IMPRESSION: Continued partial positive treatment response with improving left breast mass and adjacen t satellite nodule along with axillary adenopathy. Continued improvement in basilar pulmonary nodules . No measurable nodules currently. No new or enlarging suspicious masses or adenopathy noted.
== END | disposition home or self-care (01) ==
LOC: RADCTMAIN 10:52
PROVIDERS: ATTEND Internal Medicine Hematology & Oncology
DX: Z03.89 Encounter for observation for other suspected diseases and conditions ruled out (principal); C50.812 Malignant neoplasm of overlapping sites of left female breast
CPT/HCPCS: 82565; 84520; 71260; 74177; 36415; Q9967

== ENCOUNTER → 2021-02-10 | Outpatient (CLI) | payer MEDICARE ==
--- NOTE | 2021-02-10 13:12 | CT ---
EXAMINATION TYPE: CT ChestAbdPelvis w con DATE OF EXAM: 02/10/2021 COMPARISON: 08/20/2020 HISTORY: follow up breast cancer CT DLP: 1440 mGycm CONTRAST: CT scan of the chest, abdomen and pelvis is performed with Oral Contrast and with IV Contrast, patien t injected with 80 mL of Isovue 300. CT Chest: LUNGS: The lungs are clear and free of infiltrate or atelectasis. No pulmonary nodule or mass is det ected. Scattered subpleural fibrosis identified. MEDIASTINUM: Thoracic aorta is of normal caliber. The heart is not enlarged. No evidence for media stinal mass or adenopathy. HILAR STRUCTURES: No evidence for mass. No hilar adenopathy is appreciated. Large calcified leiomyom a right hilum. OTHER: Lumpectomy changes left breast. CONTRAST CT ABDOMEN AND PELVIS FINDINGS: LIVER/GB: Hepatic steatosis. Simple cyst adjacent to the falciform ligament measures 1.3 cm. The gall bladder is surgically absent. No space occupying hepatic lesion. Biliary tree is of normal caliber. PANCREAS: No inflammation. No distinct mass. SPLEEN: No splenic enlargement. No lesion seen. ADRENALS: No nodule. No thickening. KIDNEYS/BLADDER: No hydronephrosis. No nephrolithiasis. No disctinct renal mass. BOWEL: Normal appendix. Normal bowel caliber. No inflammation. GENITAL ORGANS: No gross abnormality. LYMPH NODES: No greater than 1cm abdominal or pelvic lymph nodes are appreciated. AORTA: No significant abnormality. OSSEOUS STRUCTURES: No significant abnormality is seen. OTHER: No significant additional abnormality is seen. IMPRESSION: 1. No CT evidence to suggest metastatic disease at this time.
== END | disposition home or self-care (01) ==
LOC: RADCTMAIN 11:02
PROVIDERS: ATTEND Internal Medicine Hematology & Oncology
DX: Z03.89 Encounter for observation for other suspected diseases and conditions ruled out (principal); C50.812 Malignant neoplasm of overlapping sites of left female breast
CPT/HCPCS: 82565; 84520; 71260; 74177; 36415; Q9967

== ENCOUNTER → 2021-03-05 | Outpatient (CLI) | payer MEDICARE ==
--- NOTE | 2021-03-05 12:31 | BD ---
EXAMINATION TYPE: Axial Bone Density DATE OF EXAM: 03/05/2021 COMPARISON: 01.24.2019 CLINICAL HISTORY: 76 YR OLD FEMALE....ICD-10 CODE: Z79.890 MENOPAUSAL Height: 61.6 Weight: 166 FRAX RISK QUESTIONS: History of Fracture in Adulthood: YES RISK FACTORS HISTORY OF: LT ELBOW FX AT AGE 66 YRS OLD Diet low in dairy products/other sources of calcium: YES Postmenopausal woman: YES, AT AGE 49 YRS OLD Hyperparathyroidism: NO Adrenal Insufficiency: NO MEDICATIONS: Osteoporosis Medications: FOSAMAX, TRIED FOR 3 MOS, COULD NOT TOLERATE Additional Medications: VIACTIVE, CALTRATE, I-BRANS CHEMO FOR LT BR CA, ZOLOFT, XANAX, REFLUX MEDS, V IT D, BIOTIN Additional History: LT BR CANCER, ANXIETY, REFLUX, EXAM MEASUREMENTS: Bone mineral densitometry was performed using the [employer] System. Bone mineral density as measured about the Lumbar spine is: ----- L1-L4(G/cm2): 0.979 T Score Values are as follows: ----- L1: -2.0 ----- L2: -2.1 ----- L3: -1.5 ----- L4: -1.3 ----- L1-L4: -1.7 Bone mineral density has: Increased 2.0% since study of: 01.24.2019 Bone mineral density about the R hip (g/cm2): 0.715 Bone mineral density about the L hip (g/cm2): 0.770 T Score values are as follows: -----R Neck: -2.3 -----L Neck: -2.2 -----R Total: -2.3 -----L Total: -1.9 Bone mineral density has: Increased 0.4% since study of: 01.24.2019 FRAX%s: THERE IS A 22.0% CHANCE FOR A MAJOR OSTEOPOROTIC FX AND A 5.8% FOR HIPS.......PROBABILITY FOR FX IN 10 YRS TIME IMPRESSION: Osteopenia (T Score between -2.5 and -1). There is slightly increased risk of fracture and the patient may be considered for treatment. Re-Screen 2-5 years. NOTE: T-SCORE=SD OF THE YOUNG ADULT MEAN.
== END | disposition home or self-care (01) ==
LOC: RADBDWWP 07:49
PROVIDERS: ATTEND Internal Medicine Hematology & Oncology
DX: M85.80 Other specified disorders of bone density and structure, unspecified site (principal)
CPT/HCPCS: 77080

== ENCOUNTER → 2022-01-20 | Outpatient (CLI) | payer MEDICARE ==
--- NOTE | 2022-01-20 12:40 | CT ---
EXAMINATION TYPE: CT ChestAbdPelvis w con DATE OF EXAM: 01/20/2022 COMPARISON: 02/10/2021 HISTORY: follow up for breast ca CT DLP: 986.3 mGycm Automated exposure control for dose reduction was used. CONTRAST: CT scan of the chest, abdomen and pelvis is performed with Oral Contrast and with IV Contrast, patien t injected with 70 mL of Isovue 300. FINDINGS: LUNGS: The lungs are grossly clear, there is no concerning parenchymal mass or nodule identified. T here is no pleural effusion or pneumothorax seen. The tracheobronchial tree is patent. Thickening of the major fissure. There is mild changes of COPD with interlobular septal thinning most typical of c hronic interstitial lung disease. Calcified granuloma right upper lobe. Mild basilar bronchiectasis. MEDIASTINUM: There are no greater than 1 cm hilar or mediastinal lymph nodes. No pericardial effusi on is seen. Large calcified right hilar lymph nodes stable. Mild coronary artery calcification. Hear t size at the upper limits of normal. Aorta normal caliber with mild atherosclerotic changes. OTHER: Previous breast surgery changes on the left suspect is stable from prior exam. LIVER/GB: Findings compatible with hepatic steatosis. There is a persistent hypodense lesion adjacent to the falciform ligament measuring 11 Hounsfield units compatible with simple cysts stable from park or exam. Measuring approximately 1.4 cm. Postcholecystectomy changes noted. PANCREAS: No significant abnormality is seen. SPLEEN: Benign granuloma within the spleen. ADRENALS: No significant abnormality is seen. KIDNEYS: No significant abnormality is seen. BOWEL: Bowel gas pattern is nonspecific with changes of diverticulosis. Bladder distends normally. LYMPH NODES: No greater than 1 cm abdominal or pelvic lymph nodes are appreciated. OSSEOUS STRUCTURES: Hypertrophic degenerative change of the spine. Arthropathy of the hips. OTHER: Aorta is normal caliber with atherosclerotic changes. Small fat-containing periumbilical herni a. IMPRESSION: 1. No CT evidence of metastases 2. COPD and findings suggestive of pulmonary fibrosis. 3. Correlate for previous granulomatous disease. 4. Mild coronary artery calcification. 5 postsurgical changes left breast #6 simple appearing hepatic cyst. Stable.
== END | disposition home or self-care (01) ==
LOC: RADCTMAIN 09:23
PROVIDERS: ATTEND Internal Medicine Hematology & Oncology
DX: C50.812 Malignant neoplasm of overlapping sites of left female breast (principal); J44.9 Chronic obstructive pulmonary disease, unspecified; I25.10 Atherosclerotic heart disease of native coronary artery without angina pectoris; K76.89 Other specified diseases of liver
CPT/HCPCS: 82565; 84520; 71260; 74177; 36415; Q9967

== ENCOUNTER → 2023-02-24 | Outpatient (CLI) | payer MEDICARE ==
[2023-02-24 13:16] LABS: African American GFR (CKD) 61 (>60 ml/min/1.73 sqM); Blood Urea Nitrogen 23 mg/dL (7-17); Non-African American GFR(CKD) 53 (>60 ml/min/1.73 sqM)
--- NOTE | 2023-03-04 05:59 | CT ---
EXAMINATION TYPE: CT ChestAbdPelvis w con CT DLP: 926.1 mGycm, Automated exposure control for dose reduction was used. DATE OF EXAM: 02/24/2023 2:18 PM COMPARISON: CT chest abdomen pelvis 01/20/2022 and before CLINICAL INDICATION:Female, 78 years old with history of C50.812 BREAST CANCER; [facility], h/o breast ca, f /u TECHNIQUE: Multiple axial images of the chest, abdomen, and pelvis were obtained. Two-dimensional cor onal and sagittal reconstructions were obtained. Contrast used:80 mL of Isovue 300 with IV Contrast, Oral contrast used: with Oral Contrast FINDINGS: CHEST: LUNGS/ PLEURA: Mild to moderate peripheral reticulation suggesting scarring/fibrosis. No evidence for honeycombing. Mild subsegmental changes in the lung bases likely atelectasis and/or scarring. No acu te infiltrate, pleural effusion, or pneumothorax. No sizable pulmonary nodule or mass. Calcified nodu larity up to 1 cm in the right upper lobe with adjacent scarring, and a 2.6 cm calcified right suprah ilar node, consistent with prior granulomatous disease. AIRWAY: Central airways are patent. LOWER NECK: No significant findings. MEDIASTINUM: No gross evidence of mediastinal or hilar adenopathy. Nonenlarged mediastinal nodes rem ain stable. HEART: Heart size upper normal. Moderate coronary artery calcification and/or stents. Trace pericardi al fluid. Mildly prominent pericardial fat. VASCULATURE: Moderate mixed atherosclerotic disease of the aorta and major branches.. Ascending aort a is 2.7 CM, descending is 2.1 CM. Aorta is considered within normal limits for size. Pulmonary trun k measures 2.8 CM. Pulmonary trunk is within normal in size. Grossly preserved enhancement of the pul monary arteries, in the limits of non-CTA exam. SOFT TISSUES/LYMPH NODES: Stable appearance of presumed scarring/post treatment changes in the left b reast. No axillary or subclavian chain adenopathy. MUSCULOSKELETAL: No acute osseous abnormalities. Moderate disc degeneration changes are present throu ghout the thoracolumbar spine with exaggerated thoracic kyphosis. Continued stable focus of sclerosis in the anterior T3 vertebral body, could be site of treated metastatic disease. There is no destruct vinh bony lesion seen. OTHER: No other significant finding. ABDOMEN PELVIS: ABDOMEN LIVER: Hypoattenuating parenchyma suggestive of moderate steatosis. Hypoattenuating lesion in the ant erior liver near the fissure for the ligamentum teres is difficult to measure precisely but is about 2 x 1.6 cm, by my measurements unchanged from priors; notably this had not been hot on previous PET a nd is consistent with a benign lesion such as hemangioma or cyst. No new or enlarging liver lesions. Portal veins are enhancing. GALLBLADDER AND BILE DUCTS: The gallbladder is surgically absent. No pathologic biliary dilatation se en. PANCREAS: Fatty infiltrated without acute finding. SPLEEN: Few calcified granulomas, otherwise unremarkable. ADRENAL GLANDS: Stable, slightly thickened without evidence of mass.. KIDNEYS AND URETERS: Kidneys enhance symmetrically. No evidence of mass or hydronephrosis. PELVIS BLADDER: Bladder incompletely distended but appears grossly unremarkable. REPRODUCTIVE: Uterus appears present and grossly unremarkable by CT. Ovaries not readily identified, there is no evidence of adnexal mass. ABDOMEN & PELVIS STOMACH AND BOWEL: Contrast traverses the stomach and small bowel loops and into the colon to the shannan cending segment. No evidence of small bowel obstruction. Stomach is not fully distended, slightly thi ckened appearance of the wall proximally and distally could be due to nondistention/contraction but p athologic thickening cannot be excluded. Small sliding-type hiatal hernia. Appendix is not identified with certainty, however there is no inflammatory process seen in the RLQ. Mild to moderate stool mix ed with contrast in the colon. There are several diverticula in the descending and sigmoid colon with out clear evidence of acute inflammatory change. PERITONEUM/RETROPERITONEUM: No evidence of pneumoperitoneum or free fluid. VASCULATURE: Moderate mixed atherosclerotic disease present throughout the abdominal aorta and its br anches. No evidence of AAA. Relatively milder disease in the iliac arteries without critical stenosis suggested. MUSCULOSKELETAL: No acute osseous abnormalities. Moderate disc degeneration changes are present throu ghout the lumbar spine. No evidence of destructive lesion. Mild bilateral hip arthropathy. LYMPH NODES: No evidence of lymphadenopathy. SOFT TISSUES/ABDOMINAL WALL: Broad-based laxity between the abdominal rectus muscles at the level of a superimposed tiny fat-containing umbilical hernia; the area of laxity contains slight protrusion of transverse colon without evidence of obstruction. OTHER: No other significant finding. IMPRESSION: 1. Overall stable exam, with findings as above. 2. No evidence of active metastatic disease currently in the chest, abdomen or pelvis.
== END | disposition home or self-care (01) ==
LOC: RADCTMAIN 11:28
PROVIDERS: ATTEND Internal Medicine Hematology & Oncology
DX: C50.812 Malignant neoplasm of overlapping sites of left female breast (principal); D72.819 Decreased white blood cell count, unspecified; M85.9 Disorder of bone density and structure, unspecified; F41.9 Anxiety disorder, unspecified; Z71.3 Dietary counseling and surveillance
CPT/HCPCS: 82565; 84520; 71260; 74177; 36415; Q9967

== ENCOUNTER → 2023-04-28 | Outpatient (CLI) | payer MEDICARE ==
--- NOTE | 2023-04-28 15:13 | BD ---
EXAMINATION TYPE: Axial Bone Density DATE OF EXAM: 04/28/2023 CLINICAL HISTORY: 78 years old Female. ICD-10 CODE: M85.9 DISORDER OF BONE DENSITY AND STRUCTURE, UN SP Height: 61.3 Weight: 159 FRAX RISK QUESTIONS: History of Fracture in Adulthood: yes 3. Menopause before 45: no RISK FACTORS HISTORY OF: elbow fx at age 66, MEDICATIONS: fosamax in the past only, hx of lt breast ca, chemo and radiation, reflux meds antidepressants and xa nax, calcium and vit d, Ibrance Osteoporosis Medications: in the past only, and now on osteoporosis infusions for 2 yrs now EXAM MEASUREMENTS: Bone mineral densitometry was performed using the [employer] System. Bone mineral density as measured about the Lumbar spine is: ----- L1-L4(G/cm2): 1.027 T Score Values are as follows: ----- L1: -1.6 ----- L2: -1.7 ----- L3: -1.1 ----- L4: -0.8 ----- L1-L4: -1.3 Z Score Values are as follows: ----- L1: -0.1 ----- L2: -0.2 ----- L3: 0.4 ----- L4: 0.7 ----- L1-L4: 0.3 Bone mineral density has: Increased 4.9% since study of: 03.05.2021 Bone mineral density about the R hip (g/cm2): 0.732 Bone mineral density about the L hip (g/cm2): 0.797 T Score values are as follows: -----R Neck: -2.4 -----L Neck: -2.0 -----R Total: -2.2 -----L Total: -1.7 Z Score values are as follows: -----R Neck: -0.6 -----L Neck: -0.2 -----R Total: -0.6 -----L Total: 0.0 Bone mineral density has: Increased 3.0% since study of: 03.05.2021 FRAX%s: The graph provided illustrates a 23.8% chance for a major osteoporotic fx and a 6.9% chance f or the hips probability for fx in 10 years time. IMPRESSION: Osteopenia (T Score between -2.5 and -1). Note that measurements are bordering on osteoporosis at the right hip. There is slightly increased risk of fracture and the patient may be considered for treatment. Re-Screen 2-5 years. NOTE: T-SCORE=SD OF THE YOUNG ADULT MEAN.
== END | disposition home or self-care (01) ==
LOC: RADBDWWP 13:38
PROVIDERS: ATTEND Internal Medicine Hematology & Oncology
DX: C50.812 Malignant neoplasm of overlapping sites of left female breast (principal); D72.819 Decreased white blood cell count, unspecified; F41.9 Anxiety disorder, unspecified; M85.89 Other specified disorders of bone density and structure, multiple sites; M81.0 Age-related osteoporosis without current pathological fracture; Z71.3 Dietary counseling and surveillance
CPT/HCPCS: 77080

== ENCOUNTER → 2023-12-20 | Outpatient (CLI) | payer MEDICARE ==
[2023-12-20 12:59] LABS: African American GFR (CKD) 58 (>60 ml/min/1.73 sqM); Blood Urea Nitrogen 17 mg/dL (7-17); Non-African American GFR(CKD) 50 (>60 ml/min/1.73 sqM)
--- NOTE | 2023-12-20 15:20 | CT ---
EXAMINATION TYPE: CT ChestAbdPelvis w con DATE OF EXAM: 12/20/2023 COMPARISON: 02/24/2023 HISTORY: Hx breast ca, routine follow up CT DLP: 992.80 mGycm Automated exposure control for dose reduction was used. CONTRAST: CT scan of the chest, abdomen and pelvis is performed with Oral Contrast and with IV Contrast, patien t injected with 80 mL of Isovue 300. FINDINGS: CT chest: Stable calcified granuloma in the right upper lobe with stable adjacent mild interstitial changes. Th ere is no new or suspicious lung masses or nodules. There is no abnormal airspace/consolidative densi ty or abnormal interstitial density. There is no pleural effusion, pleural thickening or pneumothorax. The great vessels and chest are normal. There is a stable calcified right hilar lymph node. No focal osseous lesions are seen. CT abdomen and pelvis: There is surgical absence of the gallbladder. There is moderate liver steatosis. There is a stable we ll-circumscribed 2.1 cm hypodensity in the left lobe of the liver which is likely a benign hemangioma or cyst. There is no new focal mass or organomegaly involving the liver, pancreas, spleen or adrenal glands.. There is no solid renal mass or hydronephrosis. There is no retroperitoneal adenopathy or hemorrhage in the caliber of the abdominal aorta is normal. The bowel loops are normal in caliber and there is no dilatation or obstruction. No inflammatory pitts ges identified in the bowel wall and mesentery. There is no free intraperitoneal air or fluid. There is mild diverticulosis of the sigmoid colon. There is no pelvic mass or adenopathy. There is no free fluid within the pelvis. No focal osseous lesions are seen. Soft tissue the abdomen and pelvis are normal. IMPRESSION: No evidence of recurrent or metastatic disease within the chest, abdomen and pelvis. No interval pitts ge compared to the prior study of 02/24/2023 [facility], , 12/20/2023 3:18 PM
== END | disposition home or self-care (01) ==
LOC: RADCTMAIN 11:57
PROVIDERS: ATTEND Internal Medicine Hematology & Oncology
DX: C50.812 Malignant neoplasm of overlapping sites of left female breast (principal); M85.9 Disorder of bone density and structure, unspecified; D72.819 Decreased white blood cell count, unspecified; F41.9 Anxiety disorder, unspecified
CPT/HCPCS: 82565; 84520; 71260; 74177; 36415; Q9967

== ENCOUNTER → 2024-08-15 | Outpatient (CLI) | payer MEDICARE ==
[2024-08-15 11:41] LABS: African American GFR (CKD) 59 (>60 ml/min/1.73 sqM); Blood Urea Nitrogen 19 mg/dL (7-17); Non-African American GFR(CKD) 51 (>60 ml/min/1.73 sqM)
--- NOTE | 2024-08-15 20:37 | CT ---
EXAMINATION TYPE: CT ChestAbdPelvis w con DATE OF EXAM: 08/15/2024 12:45 PM COMPARISON: None. 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 CT scan of the chest, abdomen and pe lvis is performed with Oral Contrast and with IV Contrast, patient injected with 80 ml mL of Isovue [address] DLP: 1620 mGycm, Automated exposure control for dose reduction was used. FINDINGS: CT Chest: LUNGS: Calcified granuloma right upper lobe. Mild fibrotic changes seen. The lungs are clear and free of infiltrate or atelectasis. No pulmonary nodule or mass is detected. No pleural effusion or CT e vidence of interstitial lung disease. MEDIASTINUM: Thoracic aorta is of normal caliber. The heart is not enlarged. No evidence for media stinal mass or adenopathy. HEART: Size within normal limits. No significant coronary artery calcifications. HILAR STRUCTURES: No evidence for mass. No hilar adenopathy is appreciated. OTHER: No significant abnormality. CONTRAST CT ABDOMEN AND PELVIS FINDINGS: LIVER/GB: Hepatic steatosis with stable cyst noted adjacent to the falciform ligament. The gallblad jessa is surgically absent. No space occupying hepatic lesion. Biliary tree is of normal caliber. PANCREAS: No inflammation. No distinct mass. SPLEEN: No splenic enlargement. No lesion seen. ADRENALS: No nodule. No thickening. KIDNEYS/BLADDER: No hydronephrosis. No nephrolithiasis. No disctinct renal mass. BOWEL: Normal appendix. Normal bowel caliber. No inflammation. GENITAL ORGANS: No pelvic mass or adenopathy. LYMPH NODES: No greater than 1cm abdominal or pelvic lymph nodes are appreciated. AORTA: No significant abnormality. OSSEOUS STRUCTURES: No significant abnormality is seen. OTHER: No significant additional abnormality is seen. IMPRESSION: 1. No evidence of metastatic disease or recurrent disease at this time. 2. Fatty liver. [facility], , 08/15/2024 8:35 PM
== END | disposition home or self-care (01) ==
LOC: RADCTMAIN 10:47
PROVIDERS: ATTEND Internal Medicine Hematology & Oncology
DX: C50.812 Malignant neoplasm of overlapping sites of left female breast (principal); K76.0 Fatty (change of) liver, not elsewhere classified
CPT/HCPCS: 82565; 84520; 71260; 74177; 36415; Q9967